=== PATIENT | female | born 1980 | race Asian ===

== ENCOUNTER 2016-08-25 03:50 | Inpatient (IN) | payer BC ==
[~2016-08-25] VITALS: Ht 162.6 cm; Wt 68.0 kg
[2016-08-25] MEDS ORDERED: OXYTOCIN/NORMAL SALINE 1,000 ML IV SCH ×2 (04:16→08:52)
[2016-08-25] MEDS ORDERED: LR 1,000 ML IV ONE (04:16)
[2016-08-25] MEDS ORDERED: LR 500 ML IV ONE ×3 (04:16→06:36)
[2016-08-25] MEDS ORDERED: LR 1,000 ML IV SCH (04:16)
[2016-08-25] MEDS ORDERED: NALBUPHINE HCL 10 MG/ML AMP IVP PRN (04:30)
[2016-08-25] MEDS ORDERED: TERBUTALINE SULFATE 1 MG/ML VIAL SUBCUT ONE (04:30)
[2016-08-25 04:54] LABS: HEMOGLOBIN 12.6 g/dL (12.0-16.0); RED BLOOD CELL COUNT(AUTO) 4.03 MIL/uL (4.2-6.2); WHITE BLOOD COUNT (AUTO) 9.9 K/uL (4.8-10.8)
[2016-08-25 04:55] LABS: BASOPHILS # (AUTO) 0.1 K/uL (0.0-0.2); BASOPHILS % (AUTO) 1.3 % (0.0-2.0); EOSINOPHILS # (AUTO) 0.2 K/uL (0.0-0.4); EOSINOPHILS % (AUTO) 2.2 % (0.0-4.0); LYMPHOCYTES # (AUTO) 2.5 K/uL (1.0-5.5); LYMPHOCYTES % (AUTO) 25.5 % (20.5-51.5); MEAN CORPUSCULAR HEMOGLOBIN 31 pg (27-31); MEAN CORPUSCULAR HGB CONC 34 % (32-36); MEAN CORPUSCULAR VOLUME 92 fL (79.0-98.0); MONOCYTES # (AUTO) 0.6 K/uL (0.0-1.0); MONOCYTES % (AUTO) 6.2 % (1.7-9.3); NEUTROPHILS # (AUTO) 6.5 K/uL (1.8-7.7); NEUTROPHILS % (AUTO) 64.8 % (40.0-70.0); PLATELET COUNT (AUTO) 217 K/uL (130-430); RED CELL DISTRIBUTION WIDTH 12.4 % (9.0-15.0)
[2016-08-25 05:13] VITALS: BP 123/82; PULSE 70; RESP 18; TEMP 98
[2016-08-25] MEDS ORDERED: fentaNYL CITRATE/PF 100 MCG/2 ML AMP ONE (05:47)
[2016-08-25] MEDS ORDERED: FENT2mCg/mL-ROPIVA0.2%/NS EPID 150 ML EP ONE (05:47)
[2016-08-25] MEDS ORDERED: FENT2mCg/mL-ROPIVA0.2%/NS EPID 150 ML EP SCH ×2 (06:45)
[2016-08-25] MEDS ORDERED: fentaNYL CITRATE/PF 100 MCG/2 ML AMP EP ONE ×2 (06:45)
[2016-08-25] MEDS ORDERED: ePHEDrine sulfate 50 MG/ML VIAL IVP PRN ×2 (06:45)
[2016-08-25] MEDS ORDERED: OXYTOCIN/NORMAL SALINE 1,000 ML IV ONE (08:52)
[2016-08-25] MEDS ORDERED: SENNOSIDES/DOCUSATE SODIUM 1 TAB TABLET(SENOKOT-S) PO PRN (09:00)
[2016-08-25] MEDS ORDERED: DERMOPLAST SPRAY TP PRN (09:00)
[2016-08-25] MEDS ORDERED: LANOLIN 7 GM OINT. TP PRN (09:00)
[2016-08-25] MEDS ORDERED: DOCUSATE SODIUM 100 MG CAPSULE PO PRN (09:00)
[2016-08-25] MEDS ORDERED: ANUSOL 1 EA SUPP.RECT (PREPARATION H) RC PRN (09:00)
[2016-08-25] MEDS ORDERED: METHYLERGONOVINE MALEATE 0.2 MG TABLET PO PRN (09:00)
[2016-08-25] MEDS ORDERED: HYDROCORTISONE 0.5%, 28.35 GM TOPICAL CREAM TP PRN (09:00)
[2016-08-25] MEDS ORDERED: GLYCERIN/WITCH HAZEL (TUCKS PADS) TP PRN (09:00)
[2016-08-25] MEDS ORDERED: RHO(D) IMMUNE GLOBULIN/MALTOSE 1500 UNITS/1.3 ML (WINHRO) IM PRN (09:00)
[2016-08-25] MEDS ORDERED: ACETAMINOPHEN 325 MG TABLET PO PRN (09:00)
[2016-08-25] MEDS ORDERED: OXYCODONE/ACETAMINOPHEN 5-325 TABLET PO PRN (09:00)
[2016-08-25] MEDS ORDERED: MEASLES,MUMPS&RUBELLA VACC/PF 12500 UNIT/0.5 ML VIAL SUBQ PRN (09:00)
[2016-08-25] MEDS: IBUPROFEN 600 MG TABLET PO SCH ×3 (12:24→23:51)
[2016-08-25] MEDS: OXYCODONE/ACETAMINOPHEN 5-325 TABLET PO PRN ×2 (13:27→20:09)
[2016-08-25] MEDS ORDERED: TEMAZEPAM 15 MG CAPSULE PO PRN (21:00)
[2016-08-26] MEDS: IBUPROFEN 600 MG TABLET PO SCH (06:00)
[2016-08-26 06:31] LABS: HEMATOCRIT 29.5 % (36-48); HEMOGLOBIN 9.8 g/dL (12.0-16.0)
[2016-08-26] MEDS: OXYCODONE/ACETAMINOPHEN 5-325 TABLET PO PRN (09:41)
[2016-08-26] MEDS ORDERED: MINERAL OIL 30 ML UDC PO ONE (11:59)
[2016-08-26] MEDS ORDERED: ROPIVACAINE 40 MG/20 ML AMP EP ONE (11:59)
== END 2016-08-26 12:00 | disposition home or self-care (01) | DRG 775 ==
LOC: SPU 03:50
PROVIDERS: ADMIT Obstetrics & Gynecology; ATTEND Obstetrics & Gynecology
PROC: 10E0XZZ Delivery of Products of Conception, External Approach (ICD-10-PCS; principal; 2016-08-25)
PROC: 0KQM0ZZ Repair Perineum Muscle, Open Approach (ICD-10-PCS; 2016-08-25)
PROC: 3E0S3CZ (ICD-10-PCS; 2016-08-25)
PROC: 00HU33Z Insertion of Infusion Device into Spinal Canal, Percutaneous Approach (ICD-10-PCS; 2016-08-25)
DX: O24.420 Gestational diabetes mellitus in childbirth, diet controlled (principal); O69.81X0 Labor and delivery complicated by cord around neck, without compression, not applicable or unspecified; O70.1 Second degree perineal laceration during delivery; Z37.0 Single live birth; Z3A.37 37 weeks gestation of pregnancy
CPT/HCPCS: 36415; 82947-TC; 82962; 85018-TC; 85025; 86592; 86886; 86900; 86901; J2590; J2795; J3010